=== PATIENT | female | born 1990 | race African-American/Black ===

== ENCOUNTER 2020-03-09 01:50 | Emergency (ER) | payer SELFPAY ==
[~2020-03-09] VITALS: Ht 167.6 cm; Wt 87.0 kg
[2020-03-09] MEDS ORDERED: KETOROLAC 60MG/2ML VIAL IM ONE (04:15)
[2020-03-09] MEDS ORDERED: IBUPROFEN 400MG TABLET PO ONE (04:30)
[2020-03-09 04:38] VITALS: BP 128/70
== END 2020-03-09 04:53 | disposition home or self-care (01) ==
LOC: ER 01:50
DX: G43.909 Migraine, unspecified, not intractable, without status migrainosus (principal); F12.10 Cannabis abuse, uncomplicated
CPT/HCPCS: 99283